=== PATIENT | female | born 1975 | race Caucasian/White ===

== ENCOUNTER 2017-04-22 05:50 | Day surgery (SDC) | payer OTHER ==
[~2017-04-22] VITALS: Ht 157.5 cm; Wt 62.1 kg
[2017-04-22] MEDS ORDERED: CEFAZOLIN 1 GM IVPB PREMIX 50 ML IV ONE ×2 (06:00→13:00)
[2017-04-22] MEDS ORDERED: CEFAZOLIN SOD 1 GM/ ISO 50 ML PREMIX IV ONE (06:30)
[2017-04-22] MEDS ORDERED: NS IRRIG SOLN 1000 ML IR ONE (07:30)
[2017-04-22] MEDS ORDERED: SUCCINYLCHOLINE CHLORIDE 20 MG/ML(QUELICIN) IVP ONE (07:30)
[2017-04-22] MEDS ORDERED: MIDAZOLAM HCL 5 MG/5 ML VIAL IVP ONE (07:30)
[2017-04-22] MEDS ORDERED: DEXAMETHASONE SOD PHOSPHATE 4 MG/ML VIAL IVP ONE (07:30)
[2017-04-22] MEDS ORDERED: NORMAL SALINE 10 ML VIAL IVP ONE (07:30)
[2017-04-22] MEDS ORDERED: fentaNYL CITRATE/PF 100 MCG/2 ML AMP IVP ONE (07:30)
[2017-04-22] MEDS ORDERED: NS 1000 ML BAG IV ONE (07:30)
[2017-04-22] MEDS ORDERED: ONDANSETRON HCL 4 MG/2 ML VIAL IVP ONE (07:30)
[2017-04-22] MEDS ORDERED: LIDOCAINE/EPI 1% 1:100000 20 ML VIAL INJ ONE (07:30)
[2017-04-22] MEDS ORDERED: LR 1,000 ML IV.SOLN IV ONE ×2 (07:30)
[2017-04-22] MEDS ORDERED: GLYCOPYRROLATE 0.2 MG/ML VIAL IJ ONE (07:30)
[2017-04-22] MEDS ORDERED: SEVOFLURANE 15 MIN GAS INH ONE (07:30)
[2017-04-22] MEDS ORDERED: VASOPRESSIN 20 UNITS/ML VIAL IV ONE (07:30)
[2017-04-22] MEDS ORDERED: ROCURONIUM BROMIDE 10 MG/ML (ZEMURON) IV ONE (07:30)
[2017-04-22] MEDS ORDERED: PROPOFOL 200MG/ 20ML VIAL (DIPRIVAN) IV ONE (07:30)
[2017-04-22] MEDS ORDERED: HYDROmorphone 1 MG INJ. 1 MG/ML AMPUL IVP PRN (08:15)
[2017-04-22] MEDS ORDERED: fentaNYL CITRATE/PF 100 MCG/2 ML AMP IVP PRN ×2 (08:15)
[2017-04-22] MEDS ORDERED: ONDANSETRON HCL 4 MG/2 ML VIAL IVP PRN ×2 (08:15→10:45)
[2017-04-22] MEDS ORDERED: HYDROmorphone 1 MG INJ. 1 MG/ML AMPUL ONE ×2 (09:56→10:24)
[2017-04-22] MEDS ORDERED: OXYCODONE/ACETAMINOPHEN 5-325 TABLET PO PRN ×2 (10:45)
[2017-04-22] MEDS ORDERED: HYDROcodone/ACETAMIN 5-325 MG TAB (NORCO/ VICODIN) PO PRN (10:45)
[2017-04-22] MEDS ORDERED: OXYCODONE/ACETAMINOPHEN 5-325 TABLET ONE (11:04)
[2017-04-22 11:17] VITALS: BP_SYST 101
[2017-04-22] MEDS ORDERED: ONDANSETRON HCL 4 MG/2 ML VIAL ONE (11:53)
[2017-04-22] MEDS ORDERED: KETOROLAC TROMETHAMINE 30 MG VIAL IVP ONE (14:00)
== END 2017-04-22 14:00 | disposition home or self-care (01) ==
LOC: SDS 05:50 → SMU 05:50 → SDS 14:00
PROVIDERS: ATTEND Specialist
DX: D25.2 Subserosal leiomyoma of uterus (principal); D25.1 Intramural leiomyoma of uterus; N73.6 Female pelvic peritoneal adhesions (postinfective)
CPT/HCPCS: 58546; 88304; 88305; C1727; J0330; J0690; J1100; J1170; J2250; J2405; J2704; J3010; J3490 ×2; J7030; J7120; E0190

== ENCOUNTER 2022-05-28 05:40 | Day surgery (SDC) | payer OTHER ==
[~2022-05-28] VITALS: Ht 157.5 cm; Wt 64.4 kg
[2022-05-28] MEDS ORDERED: ROCURONIUM BROMIDE 10 MG/ML (ZEMURON) ONE (07:45)
[2022-05-28] MEDS ORDERED: fentaNYL CITRATE/PF 100 MCG/2 ML AMP ONE (07:45)
[2022-05-28] MEDS ORDERED: PROPOFOL 200MG/ 20ML VIAL (DIPRIVAN) IV ONE (07:45)
[2022-05-28] MEDS ORDERED: ONDANSETRON HCL 4 MG/2 ML VIAL ONE (07:45)
[2022-05-28] MEDS ORDERED: ceFAZolin SODIUM 2 GM VIAL ONE (07:45)
[2022-05-28] MEDS ORDERED: KETOROLAC TROMETHAMINE 30 MG VIAL ONE (07:45)
[2022-05-28] MEDS ORDERED: SUGAMMADEX SODIUM 200 MG/2 ML VIAL IV ONE (07:45)
[2022-05-28] MEDS ORDERED: NS IRRIG SOLN 1000 ML IR ONE (07:45)
[2022-05-28] MEDS ORDERED: DEXAMETHASONE SOD PHOSPHATE 4 MG/ML VIAL ONE (07:45)
[2022-05-28] MEDS ORDERED: MIDAZOLAM HCL 2 MG/2 ML VIAL (VERSED) ONE (07:45)
[2022-05-28] MEDS ORDERED: BUPIVACAINE /PF 0.25% 30 ML VIAL INJ ONE (07:45)
[2022-05-28] MEDS ORDERED: DESFLURANE 15 MIN GAS INH ONE (07:45)
[2022-05-28] MEDS ORDERED: METOCLOPRAMIDE HCL 10 MG/2 ML VIAL IVP PRN (09:00)
[2022-05-28] MEDS ORDERED: MEPERIDINE HCL/PF 25 MG/ML DISP.SYRIN IVP PRN (09:00)
[2022-05-28] MEDS ORDERED: HYDROmorphone 1 MG/ML INJ. CARTRIDGE IVP PRN ×2 (09:00)
[2022-05-28] MEDS ORDERED: hydrALAZINE HCL 20 MG/ML VIAL IVP PRN (09:00)
[2022-05-28] MEDS ORDERED: LR 1,000 ML IV SCH (09:00)
[2022-05-28] MEDS ORDERED: MIDAZOLAM HCL 2 MG/2 ML VIAL (VERSED) IVP PRN (09:00)
[2022-05-28] MEDS ORDERED: LABETALOL 100 MG/ 20ML VIAL IVP PRN (09:00)
[2022-05-28] MEDS ORDERED: ACETAMINOPHEN I.V. 1000 MG 100 ML IV ONE (09:55)
[2022-05-28] MEDS ORDERED: HYDROcodone/ACETAMIN 5-325 MG TAB (NORCO/ VICODIN) PO PRN (10:15)
[2022-05-28] MEDS ORDERED: ONDANSETRON HCL 4 MG/2 ML VIAL IVP PRN (10:15)
[2022-05-28] MEDS ORDERED: OXYCODONE/ACETAMINOPHEN 5-325 TABLET PO PRN ×2 (10:15)
[2022-05-28] MEDS ORDERED: HYDROmorphone 1 MG/ML INJ. CARTRIDGE ONE (11:12)
[2022-05-28 13:48] VITALS: BP_SYST 107
== END 2022-05-28 13:43 | disposition home or self-care (01) ==
LOC: SDS 05:40 → SMU 05:40 → SDS 13:43
PROVIDERS: ATTEND Specialist
DX: N92.0 Excessive and frequent menstruation with regular cycle (principal); D50.0 Iron deficiency anemia secondary to blood loss (chronic); D25.9 Leiomyoma of uterus, unspecified; Z79.899 Other long term (current) drug therapy; Z20.822 Contact with and (suspected) exposure to COVID-19
CPT/HCPCS: 87081; 58552; 64488; 36415; 88305; 88307; 87426; J3490 ×2; J1100; J1885; J3465; J2405; J2704; J3010; J1170; C1727; J0131; S2900; 88304; E0190